=== PATIENT | female | born 1950 | race Caucasian/White ===

== ENCOUNTER 2017-11-01 13:36 | Observation (INO) ==
[2017-11-01] MEDS ORDERED: methylPREDNISolone 125 MG/2 ML VIAL IVP ONE (14:12)
[2017-11-01] MEDS ORDERED: Ipratropium/Albuterol Neb 3 ML IH ONE (14:13)
[2017-11-01 14:42] LABS: Basophils % 0.2 %; Hematocrit 39.7 % (35.3-44.9); Hemoglobin 13.7 g/dL (11.5-15.4); Lymphocytes # 1.1 K/mcL (0.6-4.6); Mean Corpuscular HGB Conc 34.5 g/dL (31.6-35.5); Mean Corpuscular Hemoglobin 31.3 pg (28.0-33.3); Mean Corpuscular Volume 90.6 fL (83.0-100.0); Mean Platelet Volume 10.5 fL (9.4-12.4); Monocytes # 0.1 K/mcL (0.0-1.3); Monocytes % 1.5 %; Neutrophils # 6.8 K/mcL (1.6-8.9); Platelet Count 272 K/mcL (140-400); Red Blood Count 4.38 M/mcL (3.82-4.97); Red Cell Distribution Width 12.4 % (11.5-14.5); Segmented Neutrophils % 83.3 %
[2017-11-01 14:47] LABS: BUN/Creatinine Ratio 27 (6-26); Blood Urea Nitrogen 24 mg/dL (8-23); Calcium 9.5 mg/dL (8.6-10.3); Carbon Dioxide 25 mEq/L (23-29); Chloride 106 mEq/L (98-107); Glucose 142 mg/dL (70-105); Osmolality,Calculated 298 (280-300); Potassium 3.3 mEq/L (3.5-5.1); Sodium 141 mEq/L (136-145); eGFR For African Americans > 60 (> 60); eGFR For Non-African Americans > 60 (> 60)
--- NOTE | 2017-11-01 14:58 | Emergency Department Note ---
Disposition Clinical Impression: Acute exacerbation of chronic obstructive airways disease, Influenza Disposition: Admitted As Inpatient Condition: Fair General Adult HPI - General Chief complaint: ED Shortness of Breath/Dyspnea Stated complaint: TIFFANI Time Seen by Provider: 11/01/17 13:43 Source: patient Limitations: no limitations Nursing Notes Reviewed: Yes Vital Signs Reviewed: Yes - History of Present Illness Pain Scale: 0 - Related Data Home Medications Medication Instructions Recorded Confirmed ALPRAZolam [Xanax 0.5 MG Tablet] 0.5 mg PO BID PRN 11/01/17 11/01/17 Albuterol Sulfate [Proair Hfa] 2 puff IH Q6H PRN 11/01/17 11/01/17 Doxycycline Hyclate [Vibramycin] 100 mg PO BID 11/01/17 11/01/17 Ipratropium/Albuterol Neb [Duoneb] 3 ml IH Q6H PRN 11/01/17 11/01/17 Allergies Allergy/AdvReac Type Severity Reaction Status Date / Time No Known Allergies Allergy Verified 11/01/17 13:41 Past Medical History - Past Medical History Medical history: Reports: cancer Psychiatric history: Reports: anxiety - Social History Smoking Status: Current some day smoker Smokeless Tobacco Status: No Alcohol use: Reports: none Drug use: Reports: none Physical Exam - General Limitations: no limitations General appearance: alert Course Vital Signs Temperature 98.3 F 11/01/17 13:37 Pulse Rate 95 11/01/17 13:37 Respiratory Rate 22 11/01/17 13:37 Blood Pressure 163/85 11/01/17 13:37 O2 Sat by Pulse Oximetry 96 11/01/17 13:37 Temperature 97.5 F L 11/01/17 18:27 Pulse Rate 104 11/01/17 18:27 Respiratory Rate 16 11/01/17 18:27 Blood Pressure 163/96 11/01/17 18:27 O2 Sat by Pulse Oximetry 92 11/01/17 18:27 Oxygen Delivery Oxygen Delivery Room Air Medical Decision Making - MDM Narrative Medical decision making narrative: This documentation is done with the assistance of Dragon dictation. Despite efforts made to ensure accuracy, there may be inaccuracies in wood tool maker or spelling and typographical errors. I examined this patient and my medical decision-making was reviewed with the Resident Physician. I agree with the documented findings, disposition and treatment plan as described except to the extent set forth below. Patient seen and evaluated by Dr. Red and myself, I agree with her evaluation and management plan, supervise care the patient's stay. Patient's had diagnosed with flu a couple days ago she has been getting more coughing shortness of breath and feeling "worn out". Were going to check labs on her chest x-ray and then reassess. She is nontoxic here. She is in agreement with this plan. Chest X-Ray 11/01/17 13:44 IMPRESSION: No acute cardiopulmonary process is identified. D/ / Ibrahima Christianson MD / Ibrahima Christianson MD Interpreting Provider: Ibrahima Christianson MD 1700 hrs.: After ambulate and her sats do drop in the high 80s but then returned to low 90s. We talked about admission and she is agreeing. We will go and bring her into the hospital. Impression is status post flu diagnosis with hypoxia. - Lab Data Result diagrams: 11/01/17 14:20 11/01/17 14:20 Lab Results 11/01/17 11/01/17 11/01/17 Range/Units 14:20 14:20 14:20 WBC 8.1 (4.3-11.1) K/mcL RBC 4.38 (3.82-4.97) M/mcL Hgb 13.7 (11.5-15.4) g/dL Hct 39.7 (35.3-44.9) % MCV 90.6 (83.0-100.0) fL MCH 31.3 (28.0-33.3) pg MCHC 34.5 (31.6-35.5) g/dL RDW 12.4 (11.5-14.5) % Plt Count 272 (140-400) K/mcL MPV 10.5 (9.4-12.4) fL Immature Gran % 1.0 (0-4) % Seg Neutrophils % 83.3 % Lymphocytes % 14.0 % Monocytes % 1.5 % Eosinophils % 0.0 % Basophils % 0.2 % Neutrophils # 6.8 (1.6-8.9) K/mcL Lymphocytes # 1.1 (0.6-4.6) K/mcL Monocytes # 0.1 (0.0-1.3) K/mcL Eosinophils # 0.0 (0.0-0.6) K/mcL Basophils # 0.0 (0.0-0.2) K/mcL Sodium 141 (136-145) mEq/L Potassium 3.3 L (3.5-5.1) mEq/L Chloride 106 (98-107) mEq/L Carbon Dioxide 25 (23-29) mEq/L BUN 24 H (8-23) mg/dL Creatinine 0.90 (0.60-1.20) mg/dL Est GFR ( Amer) > 60 (> 60) Est GFR (Non-Af Amer) > 60 (> 60) BUN/Creatinine Ratio 27 H (6-26) Glucose 142 H (70-105) mg/dL Calculated Osmolality 298 (280-300) Calcium 9.5 (8.6-10.3) mg/dL Troponin I < 0.03 (< 0.04) ng/mL B-Natriuretic Peptide (Less than 100) pg/mL 11/01/17 Range/Units 14:20 WBC (4.3-11.1) K/mcL RBC (3.82-4.97) M/mcL Hgb (11.5-15.4) g/dL Hct (35.3-44.9) % MCV (83.0-100.0) fL MCH (28.0-33.3) pg MCHC (31.6-35.5) g/dL RDW (11.5-14.5) % Plt Count (140-400) K/mcL MPV (9.4-12.4) fL Immature Gran % (0-4) % Seg Neutrophils % % Lymphocytes % % Monocytes % % Eosinophils % % Basophils % % Neutrophils # (1.6-8.9) K/mcL Lymphocytes # (0.6-4.6) K/mcL Monocytes # (0.0-1.3) K/mcL Eosinophils # (0.0-0.6) K/mcL Basophils # (0.0-0.2) K/mcL Sodium (136-145) mEq/L Potassium (3.5-5.1) mEq/L Chloride (98-107) mEq/L Carbon Dioxide (23-29) mEq/L BUN (8-23) mg/dL Creatinine (0.60-1.20) mg/dL Est GFR ( Amer) (> 60) Est GFR (Non-Af Amer) (> 60) BUN/Creatinine Ratio (6-26) Glucose (70-105) mg/dL Calculated Osmolality (280-300) Calcium (8.6-10.3) mg/dL Troponin I (< 0.04) ng/mL B-Natriuretic Peptide 113 H (Less than 100) pg/mL
--- NOTE | 2017-11-01 15:16 | Emergency Department Note ---
Disposition Clinical Impression: Acute exacerbation of chronic obstructive airways disease, Influenza Disposition: Admitted As Inpatient Condition: Fair Referrals: Sai Matos DO [Primary Care Provider] - Forms: ED Satisfaction Letter Time of Disposition: 17:05 SOB HPI - General Chief Complaint: ED Shortness of Breath/Dyspnea Stated Complaint: TIFFANI Time Seen by Provider: 11/01/17 13:43 Source: patient Limitations: no limitations Nursing Notes Reviewed: Yes Vital Signs Reviewed: Yes - History of Present Illness Patient is a 67-year-old female who presents to [facility] ED with a chief complaint of shortness of breath. States she was diagnosed with the flu about a week ago and had been on Tamiflu and steroids. Denies any nausea, vomiting. She has been afebrile since her diagnosis. States she has been very weak and has difficulty with breathing especially when she is up and walking. Patient is not on any home oxygen. Patient is still taking doxycycline. Pt Subjective Complaint: shortness of breath Onset (ago): day(s) Context: recent illness Severity: moderate Consistency/Duration: gradually worsening Improves with: nothing Worsens with: movement Known history of: COPD Associated symptoms: Reports: cough. Denies: chest pain, fever, nausea/vomiting , abdominal pain Treatment prior to arrival: none Cough present: Yes - Related Data Home oxygen amount: none Allergies Allergy/AdvReac Type Severity Reaction Status Date / Time No Known Allergies Allergy Verified 11/01/17 13:41 All systems ED: reviewed and negative except as stated. Past Medical History - Past Medical History Attestation: Yes The following information was validated with the patient. Source: patient Medical history: Reports: cancer Psychiatric history: Reports: anxiety - Social History Smoking Status: Current some day smoker Smokeless Tobacco Status: No Alcohol use: Reports: none Drug use: Reports: none Physical Exam - General Limitations: no limitations General appearance: alert - Head Head exam: atraumatic, normocephalic, normal inspection - Eye Eye exam: Present: normal appearance, EOMI - ENT ENT exam: normal exam, normal oropharynx, mucous membranes moist - Neck Neck exam: Present: normal inspection, full ROM, trachea midline - Chest Chest inspection: Present: normal inspection, symmetric chest wall rise - Respiratory Respiratory exam: Present: normal lung sounds bilaterally - Cardiovascular Cardiovascular exam: Present: regular rate, normal rhythm, normal heart sounds - Abdominal Exam Abdominal exam: Present: soft, Non-Tender. Absent: tenderness, distention, guarding, rebound, rigidity - Extremities Exam Extremities exam: Present: normal inspection, full ROM. Absent: tenderness, pedal edema - Back Exam Back exam: Present: normal inspection, full ROM. Absent: tenderness - Neurological Exam Neurological exam: Present: alert, oriented X3 - Psychiatric Psychiatric exam: Present: normal affect, normal mood - Skin Skin exam: Present: warm, dry, intact, normal color Course Course Narrative: Patient seen and examined. Difficulty breathing worse with exertion. Labs, chest x-ray, DuoNeb ordered. We will reassess. We will also ambulate patient with a pulse ox. - Reevaluation(s) Reevaluation #1: Patient drops to a pulse ox of 88% with ambulation. She is very out of breath. Since she lives at home by herself, we will go ahead and admit her for COPD exacerbation. I discussed with hospitalist Dr. Galan who has accepted patient for admission. Time: 17:04 Vital Signs Temperature 98.3 F 11/01/17 13:37 Pulse Rate 95 11/01/17 13:37 Respiratory Rate 22 11/01/17 13:37 Blood Pressure 163/85 11/01/17 13:37 O2 Sat by Pulse Oximetry 96 11/01/17 13:37 Temperature 98.3 F 11/01/17 13:37 Pulse Rate 85 11/01/17 16:41 Respiratory Rate 18 11/01/17 16:41 Blood Pressure 160/83 11/01/17 16:41 O2 Sat by Pulse Oximetry 92 11/01/17 16:41 Oxygen Delivery Oxygen Delivery Room Air Shortness of Breath/Dyspnea - Medical Records Medical records reviewed: Yes I reviewed the patient's medical records. - Lab Data Lab results reviewed: Yes I reviewed the patient's lab results. Result diagrams: 11/01/17 14:20 11/01/17 14:20 Lab Results 11/01/17 11/01/17 11/01/17 Range/Units 14:20 14:20 14:20 WBC 8.1 (4.3-11.1) K/mcL RBC 4.38 (3.82-4.97) M/mcL Hgb 13.7 (11.5-15.4) g/dL Hct 39.7 (35.3-44.9) % MCV 90.6 (83.0-100.0) fL MCH 31.3 (28.0-33.3) pg MCHC 34.5 (31.6-35.5) g/dL RDW 12.4 (11.5-14.5) % Plt Count 272 (140-400) K/mcL MPV 10.5 (9.4-12.4) fL Immature Gran % 1.0 (0-4) % Seg Neutrophils % 83.3 % Lymphocytes % 14.0 % Monocytes % 1.5 % Eosinophils % 0.0 % Basophils % 0.2 % Neutrophils # 6.8 (1.6-8.9) K/mcL Lymphocytes # 1.1 (0.6-4.6) K/mcL Monocytes # 0.1 (0.0-1.3) K/mcL Eosinophils # 0.0 (0.0-0.6) K/mcL Basophils # 0.0 (0.0-0.2) K/mcL Sodium 141 (136-145) mEq/L Potassium 3.3 L (3.5-5.1) mEq/L Chloride 106 (98-107) mEq/L Carbon Dioxide 25 (23-29) mEq/L BUN 24 H (8-23) mg/dL Creatinine 0.90 (0.60-1.20) mg/dL Est GFR ( Amer) > 60 (> 60) Est GFR (Non-Af Amer) > 60 (> 60) BUN/Creatinine Ratio 27 H (6-26) Glucose 142 H (70-105) mg/dL Calculated Osmolality 298 (280-300) Calcium 9.5 (8.6-10.3) mg/dL Troponin I < 0.03 (< 0.04) ng/mL B-Natriuretic Peptide (Less than 100) pg/mL 11/01/17 Range/Units 14:20 WBC (4.3-11.1) K/mcL RBC (3.82-4.97) M/mcL Hgb (11.5-15.4) g/dL Hct (35.3-44.9) % MCV (83.0-100.0) fL MCH (28.0-33.3) pg MCHC (31.6-35.5) g/dL RDW (11.5-14.5) % Plt Count (140-400) K/mcL MPV (9.4-12.4) fL Immature Gran % (0-4) % Seg Neutrophils % % Lymphocytes % % Monocytes % % Eosinophils % % Basophils % % Neutrophils # (1.6-8.9) K/mcL Lymphocytes # (0.6-4.6) K/mcL Monocytes # (0.0-1.3) K/mcL Eosinophils # (0.0-0.6) K/mcL Basophils # (0.0-0.2) K/mcL Sodium (136-145) mEq/L Potassium (3.5-5.1) mEq/L Chloride (98-107) mEq/L Carbon Dioxide (23-29) mEq/L BUN (8-23) mg/dL Creatinine (0.60-1.20) mg/dL Est GFR ( Amer) (> 60) Est GFR (Non-Af Amer) (> 60) BUN/Creatinine Ratio (6-26) Glucose (70-105) mg/dL Calculated Osmolality (280-300) Calcium (8.6-10.3) mg/dL Troponin I (< 0.04) ng/mL B-Natriuretic Peptide 113 H (Less than 100) pg/mL - Radiology Data Radiology results reviewed: Yes I reviewed the patient's radiology results. Chest X-Ray 11/01/17 13:44 IMPRESSION: No acute cardiopulmonary process is identified. D/ / Ibrahima Christianson MD / Ibrahima Christianson MD Interpreting Provider: Ibrahima Christianson MD - EKG Data EKG attestation: Yes I reviewed and interpreted this EKG. EKG results narrative: EKG done at 1354 shows normal sinus rhythm with a rate of [address] elevation or depression. Normal axis. Incomplete right bundle branch block present.
--- NOTE | 2017-11-01 16:12 | Electrocardiograph Report ---
[facility] Test Date: 2017-11-01 Pat Name: Sarah Keller Department: 102 Room: Gender: F Unit Tender: : 1950 Requested By: Pillo Palma Order Number: [id number] Reading MD: Sai Matos DO Measurements Intervals [place] Rate: 85 P: 61 [place]: 112 QRS: -22 QRSD: 93 T: 69 QT: 363 QTc: 406 Interpretive Statements SINUS RHYTHM WITH SHORT [place] INTERVAL BORDERLINE LEFT AXIS DEVIATION [QRS AXIS < -20] INCOMPLETE RIGHT BUNDLE BRANCH BLOCK [90+ ms QRS DURATION, TERMINAL R IN V1/V2, 40+ ms S IN I/aVL/V4/V5/V6] Electronically Signed On 11-01-2017 16:11:13 EST by Sai Matos DO
[2017-11-01] MEDS ORDERED: Naloxone 0.4 MG/ML INJ IVP PRN (17:49)
[2017-11-01] MEDS ORDERED: *HR* Promethazine 25 MG/ML VIAL IVP PRN (17:49)
[2017-11-01] MEDS ORDERED: Acetaminophen 325 MG TABLET PO PRN (17:49)
[2017-11-01] MEDS ORDERED: Ondansetron 4 MG/2 ML VIAL IVP PRN (17:49)
[2017-11-01] MEDS ORDERED: *HR* HYDROcodone/Acet 5/325 mg TABLET PO PRN (17:49)
--- NOTE | 2017-11-01 17:59 | Internal Med History&Physical ---
Date of Encounter: 11/01/17 Time of Encounter: 17:57 Assessment and Plan (1) Acute exacerbation of chronic obstructive airways disease Current visit: Yes Status: Acute will place the pt into med surg for observation reviewed her CXR did not show any acute infiltrates / consolidations However she does have purulent bronchitis which might triggered current COPD exacerbation so place her on empirical abx Levaquin sent for sputum cx, Resp viral panel no need of Tamiflu started her on high dose IV steroids cont Duoneb ARMAAN and O2 try to wean her off the O2 as she tolerates May need home O2 eval (2) Bronchitis Current visit: Yes Status: Acute suspicious for supra infection with bacteria on empirical abx (3) Tobacco dependence Current visit: Yes Status: Acute counseled to quit on nicotine patch (4) Influenza Current visit: Yes Status: Acute finished mp flu full course Internal Medicine - H&P: HPI Chief complaint: Shortness of breath Admitted From: Emergency Dept Plans for Post Hospital Care: Home History of present illness: Ms. Keller is a 67 year old female with known COPD not on home O2 dependent, chronic tobacco dependence pt who recently diagnosed with Influenza A bronchitis , was treated with Mp flu, abx Doxy and PO Steroids. She finished her steroids and Taiflu, however her symptom have not improved, still has worsening SOB, CHRISTENSEN and cough with milky sputum production. Denied any CP. No URI symptoms. Denied any fever. Past Med Surg Social Fam HX - Past Medical History Medical history: cancer, COPD Psychiatric history: anxiety - Social History Smoking Status: Current some day smoker Smokeless Tobacco Status: No Alcohol use: none Drug use: none - Additional Family History Additional family history: Family hsitory reviewed and non contribuitory to current problem. Internal Medicine - H&P: Meds ALPRAZolam [Xanax 0.5 MG Tablet] 0.5 mg PO BID PRN 11/01/17 [History] Albuterol Sulfate [Proair Hfa] 2 puff IH Q6H PRN 11/01/17 [History] Doxycycline Hyclate [Vibramycin] 100 mg PO BID 11/01/17 [History] Ipratropium/Albuterol Neb [Duoneb] 3 ml IH Q6H PRN 11/01/17 [History] 3 Allergy/AdvReac Type Severity Reaction Status Date / Time No Known Allergies Allergy Verified 11/01/17 13:41 All Systems PM: A 10-system review of systems was performed and is negative for pertinent findings except as documented above in the HPI. Review of systems: All the systems are reviewed everything is benign except the systems and symptoms I mentioned in the history of present illness - Constitutional Vitals: Temp Pulse Resp BP Pulse Ox 98.3 F 85 18 160/83 94 11/01/17 13:37 11/01/17 16:41 11/01/17 16:41 11/01/17 16:41 11/01/17 17:41 General appearance: Present: cooperative, A&O X 3, no acute distress, answers questions appropriately - Head Head exam: Present: atraumatic, normal inspection - Neck Neck exam general surgery: Present: supple - Respiratory Respiratory exam: Present: decreased breath sounds, wheezes (moderate to severe wheezing). Absent: rales, respiratory distress, rhonchi - Cardiovascular Cardiovascular exam: Present: +S1, +S2. Absent: systolic murmur, tachycardia - GI/Abdominal GI/Abdominal exam: Present: normal bowel sounds, soft. Absent: distended, rebound, rigid, tenderness - Extremities Exam Extremities exam: Absent: calf tenderness, pedal edema, tenderness - Back Exam Back exam: Absent: CVA tenderness (L), CVA tenderness (R) - Neurological Exam Neurological exam: Present: alert, oriented X3 - Psychiatric Psychiatric exam: Present: normal affect, normal mood Internal Med - H&P Results - Labs CBC & Chem 7: 11/01/17 14:20 11/01/17 14:20
[2017-11-01] MEDS: Nicotine 21 MG PATCH.TD24 TD SCH (19:29)
[2017-11-01] MEDS: Levofloxacin 750 MG/150 ML 750 MG/150 ML BAG IVPB SCH (19:31)
[2017-11-01] MEDS: MethylPREDNISolone 40 MG/ML VIAL IVP SCH (19:31)
[2017-11-01] MEDS: Ipratropium/Albuterol Neb 3 ML IH SCH ×2 (20:24→23:21)
[2017-11-01] MEDS: ALPRAZolam 0.5 MG TABLET PO PRN (21:00)
[2017-11-02] MEDS: MethylPREDNISolone 40 MG/ML VIAL IVP SCH ×4 (00:05→18:21)
[2017-11-02] MEDS: Melatonin 3 MG TABLET PO PRN ×2 (00:05→21:55)
[2017-11-02] MEDS: Ipratropium/Albuterol Neb 3 ML IH SCH ×6 (03:52→23:34)
[2017-11-02 05:49] LABS: Basophils % 0.4 %; Hematocrit 38.5 % (35.3-44.9); Hemoglobin 13.2 g/dL (11.5-15.4); Immature Granulocytes % 1.6 % (0-4); Lymphocytes # 1.3 K/mcL (0.6-4.6); Lymphocytes % 21.9 %; Mean Corpuscular HGB Conc 34.3 g/dL (31.6-35.5); Mean Corpuscular Hemoglobin 31.1 pg (28.0-33.3); Mean Corpuscular Volume 90.8 fL (83.0-100.0); Mean Platelet Volume 10.9 fL (9.4-12.4); Monocytes # 0.1 K/mcL (0.0-1.3); Monocytes % 2.3 %; Neutrophils # 4.2 K/mcL (1.6-8.9); Nucleated Red Blood Cells 0.4 /100 WBC (0); Platelet Count 289 K/mcL (140-400); Red Blood Count 4.24 M/mcL (3.82-4.97); Red Cell Distribution Width 12.5 % (11.5-14.5); Segmented Neutrophils % 73.8 %
[2017-11-02 06:37] LABS: BUN/Creatinine Ratio 31 (6-26); Blood Urea Nitrogen 29 mg/dL (8-23); Calcium 9.5 mg/dL (8.6-10.3); Carbon Dioxide 24 mEq/L (23-29); Chloride 107 mEq/L (98-107); Glucose 140 mg/dL (70-105); Osmolality,Calculated 300 (280-300); Potassium 3.5 mEq/L (3.5-5.1); Sodium 141 mEq/L (136-145); eGFR For African Americans > 60 (> 60); eGFR For Non-African Americans 60 (> 60)
[2017-11-02] MEDS: Nicotine 21 MG PATCH.TD24 TD SCH (09:36)
[2017-11-02] MEDS: ALPRAZolam 0.5 MG TABLET PO PRN ×2 (09:36→21:55)
--- NOTE | 2017-11-02 15:13 | Internal Med Progress Note ---
Date of Encounter: 11/02/17 Time of Encounter: 14:58 - Assessment and plan (1) Acute exacerbation of chronic obstructive airways disease Current Visit: Yes Status: Acute Assessment and plan: Has known COPD. Current smoker. Symptomatic with shortness of breath and wheezing. CXR without acute infiltrates or consolidations. Symptoms significantly improved with IV ATB and steroids. Continue IV Levaquin, steroids and DuoNeb's. Resp PCR, urinary antigens pending (2) DVT prophylaxis Current Visit: Yes Status: Acute Assessment and plan: heparin - Subjective Interval history: Seen and examined at bedside; patient is new to me. Information obtained from chart review and patient. Still with c/o SOB but over all improved. Non- productive cough. No CP - Constitutional Vitals: Temp Pulse Resp BP Pulse Ox 98.2 F 105 16 108/69 93 11/02/17 11:27 11/02/17 11:27 11/02/17 11:27 11/02/17 11:27 11/02/17 11:27 General appearance: Present: cooperative, A&O X 3, no acute distress, answers questions appropriately - Head Head exam: Present: atraumatic, normocephalic - Eye Eye exam: Present: PERRL, conjuntiva pink, sclera anicteric Pupils: Present: PERRL - Neck Neck exam general surgery: Present: supple, trachea midline. Absent: lymphadenopathy - Respiratory Respiratory exam: Present: CTAB, rales, rhonchi. Absent: accessory muscle use, wheezes - Cardiovascular Cardiovascular exam: Present: RRR, +S1, +S2. Absent: diastolic murmur, gallop, rubs, systolic murmur - GI/Abdominal GI/Abdominal exam: Present: normal bowel sounds, soft, no peritoneal signs. Absent: distended, tenderness - Extremities Exam Extremities exam: Present: warm, radial pulses palpable and symmetrical. Absent : calf tenderness, cyanotic, pedal edema - Neurological Exam Neurological exam: Present: CN II-XII intact, oriented X3, no focal deficits. Absent: pronater drift, facial droop, speech deficit - Skin Skin exam: Present: dry, intact Internal Medicine: Result - Labs CBC & Chem 7: 11/02/17 04:38 11/02/17 04:38 Labs: Short CBC 11/02/17 Range/Units 04:38 WBC 5.7 (4.3-11.1) K/mcL Hgb 13.2 (11.5-15.4) g/dL Hct 38.5 (35.3-44.9) % Plt Count 289 (140-400) K/mcL Neutrophils # 4.2 (1.6-8.9) K/mcL [facility] 11/02/17 04:38 Sodium 141 Potassium 3.5 Chloride 107 Carbon Dioxide 24 BUN 29 H Creatinine 0.93 Glucose 140 H Calcium 9.5 Consult Discharge Plan - Plan Referrals: Sai Matos DO [Primary Care Provider] -
[2017-11-02] MEDS: Levofloxacin 750 MG/150 ML 750 MG/150 ML BAG IVPB SCH (18:21)
[2017-11-03] MEDS: MethylPREDNISolone 40 MG/ML VIAL IVP SCH ×2 (00:54→06:17)
[2017-11-03 01:40] LABS: Adenovirus Not Detected (Not Detect); Bordetella Pertussis Not Detected (Not Detect); Chlamydophila pneumoniae Not Detected (Not Detect); Coronavirus 229E Not Detected (Not Detect); Coronavirus HKU1 Not Detected (Not Detect); Coronavirus NL63 Not Detected (Not Detect); Coronavirus OC43 Not Detected (Not Detect); Human Metapneumovirus Not Detected (Not Detect); Human Rhinovirus/Enterovirus Not Detected (Not Detect); Influenza A Subtype 2009 H1 Not Detected (Not Detect); Influenza A Untypeable Not Detected (Not Detect); Influenza B Not Detected (Not Detect); Mycoplasma pneumoniae Not Detected (Not Detect); Parainfluenza Virus 1 Not Detected (Not Detect); Parainfluenza Virus 2 Not Detected (Not Detect); Parainfluenza Virus 3 Not Detected (Not Detect); Parainfluenza Virus 4 Not Detected (Not Detect); Respiratory Syncytial Virus Not Detected (Not Detect)
[2017-11-03] MEDS: Ipratropium/Albuterol Neb 3 ML IH SCH ×3 (03:40→11:16)
[2017-11-03] MEDS: Nicotine 21 MG PATCH.TD24 TD SCH (08:18)
[2017-11-03] MEDS: ALPRAZolam 0.5 MG TABLET PO PRN (08:19)
--- NOTE | 2017-11-03 09:05 | Discharge Summary ---
Orders not resulted at time of discharge: Pending orders 11/01/17 17:53 Culture,Sputum with Gram Stain [] Routine Date of Encounter: 11/03/17 Time of Encounter: 09:01 - Discharge Diagnosis (1) Acute exacerbation of chronic obstructive airways disease Priority: Primary Status: Acute Comments: has known COPD. Recently quit smoking. Was recently treated for influenza and COPD with doxycycline. Now with worsening shortness of breath and wheezing. Respiratory PCR, urinary antigens negative. CXR without acute infiltrates or consolidations. Symptoms significantly improved with IV ATB and steroids. Discharge home on Levaquin (to complete 7 day course), steroid burst, bronchodilator. Encouraged to maintain smoking cessation. Follow-up with PCP within 1-2 weeks. (2) Anxiety Priority: Secondary Status: Chronic Comments: per hx. Cont home xanax Hospital course: Ms. Keller is a 67 year old female with PMH COPD who presented to [facility] on 2017 with c/o of shortness of breath and wheezing. She was found to be in acute COPD exacerbation. Symptoms improved with IV steroids and antibiotics. She was discharged home in stable condition with oral steroids and ATB. See assessment and plan for further details. Discharge discussed with: patient - Time Spent with Patient Total time spent providing and/or coordinating discharge services: Less than 30 minutes - Discharge Medications Prescriptions: levoFLOXacin [Levaquin] 750 mg PO DAILY #5 tablet Nicotine Patch [Nicoderm] 21 mg TD DAILY #30 patch.td24 predniSONE [PredniSONE] 40 mg PO DAILY #10 tablet Home Medications: ALPRAZolam [Xanax 0.5 MG Tablet] 0.5 mg PO BID PRN 11/01/17 [History] Albuterol Sulfate [Proair Hfa] 2 puff IH Q6H PRN 11/01/17 [History] Ipratropium/Albuterol Neb [Duoneb] 3 ml IH Q6H PRN 11/01/17 [History] Nicotine Patch [Nicoderm] 21 mg TD DAILY #30 patch.td24 11/03/17 [Rx] levoFLOXacin [Levaquin] 750 mg PO DAILY #5 tablet 11/03/17 [Rx] predniSONE [PredniSONE] 40 mg PO DAILY #10 tablet 11/03/17 [Rx] Allergies/Adverse Reactions: 3 Allergy/AdvReac Type Severity Reaction Status Date / Time No Known Allergies Allergy Verified 11/01/17 13:41 Date of admission: 11/01/17 17:12 Primary care physician: Kuldip Leyva Discharging clinician: Norma Garcia Anticipated date of discharge: 11/03/17 - Constitutional Vitals: Temp Pulse Resp BP Pulse Ox 97.2 F L 90 17 133/81 91 11/03/17 07:36 11/03/17 07:36 11/03/17 07:36 11/03/17 07:36 11/03/17 07:36 General appearance: Present: cooperative, A&O X 3, no acute distress, answers questions appropriately - Head Head exam: Present: atraumatic, normocephalic - Eye Eye exam: Present: PERRL, conjuntiva pink, sclera anicteric Pupils: Present: PERRL - Neck Neck exam general surgery: Present: supple, trachea midline. Absent: lymphadenopathy - Respiratory Respiratory exam: Present: CTAB. Absent: accessory muscle use, rales, rhonchi, wheezes - Cardiovascular Cardiovascular exam: Present: RRR, +S1, +S2. Absent: diastolic murmur, gallop, rubs, systolic murmur - GI/Abdominal GI/Abdominal exam: Present: normal bowel sounds, soft, no peritoneal signs. Absent: distended, tenderness - Extremities Exam Extremities exam: Present: warm, radial pulses palpable and symmetrical. Absent : calf tenderness, cyanotic, pedal edema - Neurological Exam Neurological exam: Present: CN II-XII intact, oriented X3, no focal deficits. Absent: pronater drift, facial droop, speech deficit - Skin Skin exam: Present: dry, intact - Patient Status Disposition: Home, Self-Care Condition: Good Functional capacity at discharge: independent ambulation Overall status at discharge: patient is progressing back to baseline - Discharge Instructions Instructions: Chronic Obstructive Pulmonary Disease (DC), Levofloxacin (By mouth), Prednisone (By mouth) Follow Up With: Sai Matos DO [Primary Care Provider] - (Please call office for an appointment within 1-2 weeks) - Diet and Activity Activity: increase activity as tolerated Diet: advance to your usual diet
[2017-11-03 11:34] VITALS: BP 139/85
== END 2017-11-03 11:20 | disposition home or self-care (01) ==
LOC: 3BNU 13:36 → EMEROO 13:36 → 3BNU 18:06
PROVIDERS: ADMIT Family Medicine; ATTEND Registered Nurse

== ENCOUNTER 2021-03-29 15:04 | Inpatient (IN) ==
[2021-03-29] MEDS ORDERED: Dexamethasone Sodium Phos/PF 10 MG/ML VIAL PO ONE (16:21)
[2021-03-29] MEDS ORDERED: Ipratropium/Albuterol Neb 3 ML IH ONE (16:22)
[2021-03-29] MEDS ORDERED: Albuterol 2.5 MG/3 ML NEBULIZER IH ONE ×2 (16:23→18:40)
[2021-03-29 16:27] LABS: Basophils % 0.7 %; Eosinophils % 0.5 %; Hematocrit 41.9 % (35.3-44.9); Immature Granulocytes % 0.3 % (0-4); Lymphocytes # 1.7 K/mcL (0.6-4.6); Lymphocytes % 28.8 %; Mean Corpuscular HGB Conc 33.4 g/dL (31.6-35.5); Mean Corpuscular Hemoglobin 31.4 pg (28.0-33.3); Mean Corpuscular Volume 93.9 fL (83.0-100.0); Mean Platelet Volume 10.9 fL (9.4-12.4); Monocytes # 0.3 K/mcL (0.0-1.3); Monocytes % 5.8 %; Neutrophils # 3.8 K/mcL (1.6-8.9); Platelet Count 218 K/mcL (140-400); Red Blood Count 4.46 M/mcL (3.82-4.97); Red Cell Distribution Width 12.7 % (11.5-14.5); Segmented Neutrophils % 63.9 %; White Blood Count 5.9 K/mcL (4.3-11.1)
[2021-03-29 16:56] LABS: BUN/Creatinine Ratio 22 (6-26); Blood Urea Nitrogen 25 mg/dL (8-23); Calcium 9.3 mg/dL (8.6-10.3); Carbon Dioxide 21 mEq/L (23-29); Chloride 104 mEq/L (98-107); Glucose 93 mg/dL (70-105); Osmolality,Calculated 288 (280-300); Potassium 4.1 mEq/L (3.5-5.1); Sodium 137 mEq/L (136-145); Troponin I < 0.03 ng/mL (< 0.04); eGFR For African Americans 57 (> 60); eGFR For Non-African Americans 47 (> 60)
[2021-03-29] MEDS ORDERED: Isovue-370 500 ML BOTTLE IVP ONE (20:34)
[2021-03-29] MEDS ORDERED: Naloxone 0.4 MG/ML INJ IVP PRN (21:19)
[2021-03-29] MEDS ORDERED: Melatonin 3 MG TABLET PO PRN (21:19)
[2021-03-29] MEDS ORDERED: Azithromycin 500 MG in 0.9 % Sodium Chloride 250 ML IVPB ONE (21:19)
[2021-03-29 22:48] LABS: Adenovirus Not Detected (Not Detect); Bordetella Pertussis Not Detected (Not Detect); Chlamydophila pneumoniae Not Detected (Not Detect); Coronavirus 229E Not Detected (Not Detect); Coronavirus HKU1 Not Detected (Not Detect); Coronavirus NL63 Not Detected (Not Detect); Coronavirus OC43 Not Detected (Not Detect); Human Metapneumovirus Not Detected (Not Detect); Human Rhinovirus/Enterovirus Not Detected (Not Detect); Influenza A Subtype 2009 H1 Not Detected (Not Detect); Influenza B Not Detected (Not Detect); Mycoplasma pneumoniae Not Detected (Not Detect); Parainfluenza Virus 1 Not Detected (Not Detect); Parainfluenza Virus 2 Not Detected (Not Detect); Parainfluenza Virus 3 DETECTED (Not Detect); Parainfluenza Virus 4 Not Detected (Not Detect); Respiratory Syncytial Virus Not Detected (Not Detect); SARS-CoV-2 Not Detected (Not Detect)
[2021-03-29] MEDS: *HR* Heparin 5,000 UNIT/ML VIAL SQ SCH (23:01)
[2021-03-29] MEDS: Ipratropium/Albuterol Neb 3 ML IH SCH (23:25)
[2021-03-29] MEDS: MethylPREDNISolone 40 MG/ML VIAL IVP SCH (23:45)
[2021-03-30] MEDS: ALPRAZolam 0.5 MG TABLET PO PRN ×2 (00:21→11:58)
[2021-03-30] MEDS: Ipratropium/Albuterol Neb 3 ML IH SCH ×3 (03:35→11:04)
[2021-03-30 03:38] LABS: Hematocrit 41.3 % (35.3-44.9); Hemoglobin 14.3 g/dL (11.5-15.4); Mean Corpuscular HGB Conc 34.6 g/dL (31.6-35.5); Mean Corpuscular Hemoglobin 32.1 pg (28.0-33.3); Mean Corpuscular Volume 92.6 fL (83.0-100.0); Mean Platelet Volume 11.1 fL (9.4-12.4); Platelet Count 245 K/mcL (140-400); Red Blood Count 4.46 M/mcL (3.82-4.97); Red Cell Distribution Width 12.9 % (11.5-14.5); White Blood Count 3.7 K/mcL (4.3-11.1)
[2021-03-30 03:59] LABS: BUN/Creatinine Ratio 24 (6-26); Blood Urea Nitrogen 24 mg/dL (8-23); Calcium 9.4 mg/dL (8.6-10.3); Carbon Dioxide 19 mEq/L (23-29); Chloride 106 mEq/L (98-107); Glucose 159 mg/dL (70-105); Osmolality,Calculated 295 (280-300); Potassium 4.3 mEq/L (3.5-5.1); Sodium 139 mEq/L (136-145); eGFR For African Americans > 60 (> 60); eGFR For Non-African Americans 54 (> 60)
[2021-03-30] MEDS: MethylPREDNISolone 40 MG/ML VIAL IVP SCH ×3 (05:26→20:07)
[2021-03-30] MEDS: *HR* Heparin 5,000 UNIT/ML VIAL SQ SCH ×3 (05:27→20:07)
[2021-03-30] MEDS: Azithromycin 500 MG in 0.9 % Sodium Chloride 250 ML IVPB SCH (08:02)
[2021-03-30] MEDS: Aspirin Enteric Coated 81 MG Tablet PO SCH (08:04)
[2021-03-30] MEDS: BuPROPion XL (24 HR) 150 MG TABLET PO SCH (11:54)
[2021-03-30] MEDS: Ondansetron 4 MG/2 ML VIAL IVP PRN (11:58)
[2021-03-30] MEDS: Levalbuterol Neb 1.25 MG/3 ML IH SCH ×2 (16:16→23:18)
[2021-03-30] MEDS: Melatonin 3 MG TABLET PO SCH (20:07)
[2021-03-31] MEDS: Levalbuterol Neb 1.25 MG/3 ML IH SCH ×4 (04:07→22:57)
[2021-03-31] MEDS: MethylPREDNISolone 40 MG/ML VIAL IVP SCH ×3 (05:21→20:35)
[2021-03-31] MEDS: *HR* Heparin 5,000 UNIT/ML VIAL SQ SCH ×3 (05:21→20:35)
[2021-03-31 06:47] LABS: Calcium 9.3 mg/dL (8.6-10.3); Magnesium 2.2 mg/dL (1.6-2.6); Phosphorous 3.8 mg/dL (2.7-4.5); Potassium 4.6 mEq/L (3.5-5.1)
[2021-03-31] MEDS: Acetaminophen 325 MG TABLET PO PRN (09:28)
[2021-03-31] MEDS: ALPRAZolam 0.5 MG TABLET PO PRN ×2 (09:30→20:35)
[2021-03-31] MEDS: BuPROPion XL (24 HR) 150 MG TABLET PO SCH (09:30)
[2021-03-31] MEDS: Aspirin Enteric Coated 81 MG Tablet PO SCH (09:30)
[2021-03-31] MEDS: Azithromycin 500 MG in 0.9 % Sodium Chloride 250 ML IVPB SCH (09:31)
[2021-03-31] MEDS: 0.9 % Sodium Chloride 1,000 ML IVC SCH ×2 (09:31→22:42)
[2021-03-31] MEDS: Melatonin 3 MG TABLET PO SCH (20:35)
[2021-04-01 03:01] LABS: BUN/Creatinine Ratio 32 (6-26); Blood Urea Nitrogen 33 mg/dL (8-23); Calcium 9.1 mg/dL (8.6-10.3); Carbon Dioxide 29 mEq/L (23-29); Chloride 109 mEq/L (98-107); Glucose 150 mg/dL (70-105); Magnesium 2.1 mg/dL (1.6-2.6); Osmolality,Calculated 306 (280-300); Potassium 4.5 mEq/L (3.5-5.1); Sodium 143 mEq/L (136-145); eGFR For African Americans > 60 (> 60); eGFR For Non-African Americans 53 (> 60)
[2021-04-01] MEDS: Levalbuterol Neb 1.25 MG/3 ML IH SCH ×4 (04:24→20:35)
[2021-04-01] MEDS: MethylPREDNISolone 40 MG/ML VIAL IVP SCH ×2 (05:52→18:37)
[2021-04-01] MEDS: *HR* Heparin 5,000 UNIT/ML VIAL SQ SCH ×3 (05:52→20:46)
[2021-04-01] MEDS: Acetaminophen 325 MG TABLET PO PRN (06:01)
[2021-04-01] MEDS: ALPRAZolam 0.5 MG TABLET PO PRN ×2 (06:01→20:46)
[2021-04-01] MEDS: Aspirin Enteric Coated 81 MG Tablet PO SCH (09:40)
[2021-04-01] MEDS: Azithromycin 500 MG in 0.9 % Sodium Chloride 250 ML IVPB SCH (09:40)
[2021-04-01] MEDS: BuPROPion XL (24 HR) 150 MG TABLET PO SCH (09:40)
[2021-04-01] MEDS: Melatonin 3 MG TABLET PO SCH (20:45)
[2021-04-02] MEDS: Levalbuterol Neb 1.25 MG/3 ML IH SCH ×4 (03:54→21:49)
[2021-04-02] MEDS: *HR* Heparin 5,000 UNIT/ML VIAL SQ SCH ×3 (05:25→21:45)
[2021-04-02] MEDS: MethylPREDNISolone 40 MG/ML VIAL IVP SCH ×2 (05:25→17:29)
[2021-04-02] MEDS: BuPROPion XL (24 HR) 150 MG TABLET PO SCH (08:53)
[2021-04-02] MEDS: Azithromycin 500 MG in 0.9 % Sodium Chloride 250 ML IVPB SCH (08:53)
[2021-04-02] MEDS: Aspirin Enteric Coated 81 MG Tablet PO SCH (08:53)
[2021-04-02] MEDS: ALPRAZolam 0.5 MG TABLET PO PRN ×2 (08:53→21:48)
[2021-04-02] MEDS: Ondansetron 4 MG/2 ML VIAL IVP PRN (17:29)
[2021-04-02] MEDS: Melatonin 3 MG TABLET PO SCH (21:49)
[2021-04-03] MEDS: Levalbuterol Neb 1.25 MG/3 ML IH SCH ×4 (03:49→22:43)
[2021-04-03] MEDS: *HR* Heparin 5,000 UNIT/ML VIAL SQ SCH ×3 (06:02→23:00)
[2021-04-03] MEDS: BuPROPion XL (24 HR) 150 MG TABLET PO SCH (08:57)
[2021-04-03] MEDS: predniSONE 20 MG TABLET PO SCH (08:57)
[2021-04-03] MEDS: Aspirin Enteric Coated 81 MG Tablet PO SCH (08:57)
[2021-04-03] MEDS ORDERED: Azithromycin 250 MG TABLET PO SCH (09:00)
[2021-04-03] MEDS: ALPRAZolam 0.5 MG TABLET PO PRN ×2 (11:22→22:59)
[2021-04-03] MEDS: Melatonin 3 MG TABLET PO SCH (22:59)
[2021-04-04] MEDS: Levalbuterol Neb 1.25 MG/3 ML IH SCH ×4 (04:13→22:45)
[2021-04-04] MEDS: *HR* Heparin 5,000 UNIT/ML VIAL SQ SCH ×3 (06:25→21:16)
[2021-04-04] MEDS: predniSONE 20 MG TABLET PO SCH (07:58)
[2021-04-04] MEDS: ALPRAZolam 0.5 MG TABLET PO PRN ×2 (07:58→21:12)
[2021-04-04] MEDS: BuPROPion XL (24 HR) 150 MG TABLET PO SCH (07:58)
[2021-04-04] MEDS: Aspirin Enteric Coated 81 MG Tablet PO SCH (07:58)
[2021-04-04] MEDS: Ondansetron 4 MG/2 ML VIAL IVP PRN (17:11)
[2021-04-04] MEDS: Melatonin 3 MG TABLET PO SCH (21:12)
[2021-04-05] MEDS: Levalbuterol Neb 1.25 MG/3 ML IH SCH ×2 (04:28→11:01)
[2021-04-05] MEDS: *HR* Heparin 5,000 UNIT/ML VIAL SQ SCH (05:14)
[2021-04-05 07:57] VITALS: BP 143/81; PULSE 100; TEMP 97.7
[2021-04-05] MEDS: ALPRAZolam 0.5 MG TABLET PO PRN (09:20)
[2021-04-05] MEDS: BuPROPion XL (24 HR) 150 MG TABLET PO SCH (09:20)
[2021-04-05] MEDS: Aspirin Enteric Coated 81 MG Tablet PO SCH (09:20)
[2021-04-05] MEDS: predniSONE 20 MG TABLET PO SCH (09:20)
[2021-04-05 10:27] VITALS: O2SAT 95
== END 2021-04-05 14:14 | disposition home or self-care (01) | DRG 193 ==
LOC: 3BNU 15:04 → EMEROOARM 15:04 → SUATTDRO 21:47 → 3BNU 22:00 → SUATTDRO 03-31 12:22
PROVIDERS: ADMIT Internal Medicine; ATTEND Internal Medicine